=== PATIENT | male | born 1990 | race Caucasian/White ===

== ENCOUNTER 2020-09-06 01:26 | Emergency (ER) | payer SELFPAY ==
[~2020-09-06] VITALS: Ht 154.9 cm; Wt 78.5 kg
[2020-09-06 01:36] VITALS: Ht 154.9 cm; Wt 78.5 kg
[2020-09-06] MEDS ORDERED: AMO500 PO (02:09)
[2020-09-06] MEDS ORDERED: MOT800 PO (02:09)
[2020-09-06 02:19] VITALS: BP 127/79
== END 2020-09-06 02:19 | disposition home or self-care (01) ==
LOC: ED 01:26
DX: J02.9 Acute pharyngitis, unspecified (principal)